=== PATIENT | male | born 1970 | race Caucasian/White ===

== ENCOUNTER 2020-06-07 10:17 | Emergency (ER) | payer OTHER ==
[~2020-06-07] VITALS: Ht 162.6 cm; Wt 75.0 kg
[2020-06-07 10:20] VITALS: BP 146/102
[2020-06-07] MEDS ORDERED: LIDOCAINE HCL/PF 1% 10 MG/ML 5ML VIAL IJ ONE (10:45)
[2020-06-07] MEDS ORDERED: TETANUS, DIPHTHERIA, PERTUSSIS VAC/PF 0.5ML (>7YR OLD) IM ONE (10:45)
[2020-06-07] MEDS ORDERED: BACITRACIN ZINC OINT UDPKT TOP ONE (10:45)
[2020-06-07] MEDS ORDERED: IBUPROFEN 600MG TABLET PO ONE (10:45)
== END 2020-06-07 11:45 | disposition home or self-care (01) ==
LOC: ER 10:17
DX: S01.81XA Laceration without foreign body of other part of head, initial encounter (principal); V47.0XXA Car driver injured in collision with fixed or stationary object in nontraffic accident, initial encounter; Y93.89 Activity, other specified; Y92.488 Other paved roadways as the place of occurrence of the external cause
CPT/HCPCS: 12013; 90471; 90715; 99283; J3490